=== PATIENT | male | born 1965 | race African-American/Black ===

== ENCOUNTER 2019-05-18 02:43 | Emergency (ER) | payer OTHER ==
[~2019-05-18] VITALS: Ht 185.4 cm; Wt 92.0 kg
[2019-05-18] MEDS ORDERED: HYDROCODONE/ACETAMINOPHEN 10/325MG TABLET PO ONE (03:30)
[2019-05-18] MEDS ORDERED: ONDANSETRON HCL 4MG/2ML INJ IV ONE (03:30)
[2019-05-18 04:03] LABS: BASOPHILS % 0.9 % (0.0-2.0); EOSINOPHILS % 2.4 % (0.0-5.0); HEMOGLOBIN. 14.9 g/dL (14.0-18.0); LYMPHOCYTES % 21.5 % (20.0-50.0); MEAN CORPUSCULAR HEMOGLOBIN 34.1 pg (28.0-32.0); MEAN CORPUSCULAR VOLUME 98.8 fL (80.0-94.0); MEAN PLATELET VOLUME 8.3 fl (7.4-10.4); MONOCYTES % 5.5 % (2.0-8.0); NEUTROPHILS % 69.7 % (40.0-76.0); PLATELET 227 x1000/uL (130-400); RED BLOOD CELL COUNT 4.36 mill/uL (4.7-6.1); RED CELL DISTRIBUTION WIDTH 14.2 % (11.6-14.6)
[2019-05-18 04:05] LABS: CHLORIDE 112 mEq/L (98-107)
[2019-05-18 04:09] LABS: ETHANOL BLOOD 111 mg/dL; PARTIAL THROMBOPLASTIN TIME 28.3 sec (23.4-31.0); PROTHROMBIN TIME 10.2 sec (9.6-11.0)
[2019-05-18 04:42] LABS: CLARITY URINE CLEAR (CLEAR); COLOR URINE YELLOW (YELLOW); KETONES URINE NEGATIVE (NEGATIVE); LEUKOCYTE ESTERASE URINE NEGATIVE (NEGATIVE); NITRITE URINE NEGATIVE (NEGATIVE); OCCULT BLOOD URINE NEGATIVE (NEGATIVE); PROTEIN URINE TRACE (NEGATIVE); SPECIFIC GRAVITY URINE 1.028 (1.005-1.030); UROBILINOGEN URINE 0.2 E.U./dL (0.2-1.0)
[2019-05-18 05:44] VITALS: BP 146/97
== END 2019-05-18 05:45 | disposition home or self-care (01) ==
LOC: ER 04:29
DX: R51 Headache (principal); F10.129 Alcohol abuse with intoxication, unspecified; Y90.0 Blood alcohol level of less than 20 mg/100 ml; V49.49XA Driver injured in collision with other motor vehicles in traffic accident, initial encounter; Y93.89 Activity, other specified; Y92.89 Other specified places as the place of occurrence of the external cause; Y99.8 Other external cause status; R74.8 Abnormal levels of other serum enzymes; Z85.9 Personal history of malignant neoplasm, unspecified
CPT/HCPCS: 36415; 70450; 71045; 80053; 80320; 81003; 82962; 83690; 85025; 85610; 85730; 86850; 86900; 86901; 96374; 99284; J2405; G0480

== ENCOUNTER 2021-02-12 01:13 | Emergency (ER) | payer OTHER ==
[~2021-02-12] VITALS: Ht 172.7 cm; Wt 90.0 kg
[2021-02-12] MEDS ORDERED: MORPHINE SULFATE 4 MG/ML CPJ (NOT FOR IM USE) IV STA (02:00)
[2021-02-12] MEDS ORDERED: SODIUM CHLORIDE 0.9% 1,000 ML IV ONE (02:00)
[2021-02-12] MEDS ORDERED: ONDANSETRON HCL 4MG/2ML INJ IV STA (02:00)
[2021-02-12] MEDS ORDERED: MORPHINE SULFATE 2 MG/ML CPJ (NOT FOR IM USE) IV SCH ×2 (02:15→03:45)
[2021-02-12 02:41] LABS: BASOPHILS % 0.8 % (0.0-2.0); EOSINOPHILS % 2.1 % (0.0-5.0); HEMATOCRIT. 42.5 % (42.0-52.0); HEMOGLOBIN. 14.6 g/dL (14.0-18.0); LYMPHOCYTES % 19.6 % (20.0-50.0); MEAN CORPUSCULAR HEMOGLOBIN 34.3 pg (28.0-32.0); MEAN CORPUSCULAR VOLUME 99.7 fL (80.0-94.0); MEAN PLATELET VOLUME 7.9 fl (7.4-10.4); MONOCYTES % 5.4 % (2.0-8.0); NEUTROPHILS % 72.1 % (40.0-76.0); PLATELET 226 x1000/uL (130-400); RED BLOOD CELL COUNT 4.27 mill/uL (4.7-6.1); RED CELL DISTRIBUTION WIDTH 13.7 % (11.6-14.6)
[2021-02-12 02:44] LABS: CHLORIDE 105 mEq/L (98-107)
[2021-02-12 02:48] LABS: ETHANOL BLOOD 75 mg/dL
[2021-02-12] MEDS ORDERED: MORPHINE SULFATE 4 MG/ML CPJ (NOT FOR IM USE) IV ONE (03:30)
[2021-02-12] MEDS ORDERED: IOHEXOL-300 100 ML BOTTLE ONE (04:11)
[2021-02-12 05:01] LABS: CLARITY URINE CLEAR (CLEAR); COLOR URINE YELLOW (YELLOW); KETONES URINE 1+ (NEGATIVE); LEUKOCYTE ESTERASE URINE NEGATIVE (NEGATIVE); NITRITE URINE NEGATIVE (NEGATIVE); OCCULT BLOOD URINE NEGATIVE (NEGATIVE); PH URINE 6.5 (4.5-8.0); PROTEIN URINE TRACE (NEGATIVE); SPECIFIC GRAVITY URINE 1.035 (1.005-1.030)
[2021-02-12 05:13] LABS: *BENZODIAZEPINES SCREEN URINE NEGATIVE (NEGATIVE)
[2021-02-12 05:14] LABS: *BARBITURATES SCREEN URINE NEGATIVE (NEGATIVE); *COCAINE SCREEN URINE PRESUMTIVE POSITIVE (NEGATIVE); CANNABINOID URINE SCREEN PRESUMTIVE POSITIVE (NEGATIVE); METHADONE URINE SCREEN NEGATIVE (NEGATIVE); OPIATES URINE SCREEN PRESUMTIVE POSITIVE (NEGATIVE); PHENCYCLIDINE URINE SCREEN NEGATIVE (NEGATIVE)
[2021-02-12 05:15] LABS: *AMPHETAMINES SCREEN URINE NEGATIVE (NEGATIVE)
[2021-02-12] MEDS ORDERED: HALOPERIDOL LACTATE 5MG/ML VIAL IM SCH (05:30)
[2021-02-12 05:50] VITALS: BP 146/89
== END 2021-02-12 06:22 | disposition home or self-care (01) ==
LOC: ER 01:13
DX: K20.90 Esophagitis, unspecified without bleeding (principal); K52.9 Noninfective gastroenteritis and colitis, unspecified; F14.10 Cocaine abuse, uncomplicated; F12.10 Cannabis abuse, uncomplicated
CPT/HCPCS: 36415; 74177; 80053; 80305; 80320; 81003; 83690; 85025; 96361; 96372; 96374; 96375; 96376; 99285; J1630; J2270; J2405; J7030; Q9967; G0480

== ENCOUNTER 2022-07-25 07:14 | Emergency (ER) | payer OTHER ==
[~2022-07-25] VITALS: Ht 180.3 cm; Wt 86.0 kg
[2022-07-25] MEDS ORDERED: KETOROLAC 30MG/ML VIAL IV STA (07:37)
[2022-07-25] MEDS ORDERED: ONDANSETRON HCL 4MG/2ML INJ IV STA (07:37)
[2022-07-25] MEDS ORDERED: SODIUM CHLORIDE 0.9% 1,000 ML IV ONE (07:45)
[2022-07-25 07:50] LABS: BASOPHILS % 0.4 % (0.0-2.0); HEMATOCRIT. 41.3 % (42.0-52.0); HEMOGLOBIN. 14.1 g/dL (14.0-18.0); LYMPHOCYTES % 16.5 % (20.0-50.0); MEAN CORPUSCULAR HEMOGLOBIN 34.2 pg (28.0-32.0); MEAN CORPUSCULAR VOLUME 100.4 fL (80.0-94.0); MEAN PLATELET VOLUME 8.3 fl (7.4-10.4); MONOCYTES % 5.5 % (2.0-8.0); NEUTROPHILS % 76.6 % (40.0-76.0); PLATELET 242 x1000/uL (130-400); RED BLOOD CELL COUNT 4.12 mill/uL (4.7-6.1); RED CELL DISTRIBUTION WIDTH 14.1 % (11.6-14.6)
[2022-07-25 08:00] LABS: PROTHROMBIN TIME 11.2 sec (9.6-11.0)
[2022-07-25 08:06] LABS: CHLORIDE 104 mEq/L (98-107)
[2022-07-25 08:14] LABS: ETHANOL BLOOD < 10 mg/dL
[2022-07-25] MEDS ORDERED: METOCLOPRAMIDE HCL 10MG/2ML VIAL IV ONE (09:00)
[2022-07-25] MEDS ORDERED: OMEP40CA20 MT (09:24)
[2022-07-25] MEDS ORDERED: ONDA4TAB50 MT (09:24)
[2022-07-25 11:10] VITALS: BP 125/78
== END 2022-07-25 15:06 | disposition home or self-care (01) ==
LOC: ER 07:14
DX: R10.9 Unspecified abdominal pain (principal); E11.9 Type 2 diabetes mellitus without complications; I25.2 Old myocardial infarction; I10 Essential (primary) hypertension; Z86.73 Personal history of transient ischemic attack (TIA), and cerebral infarction without residual deficits
CPT/HCPCS: 36415; 74176; 80053; 80320; 83690; 85025; 85610; 96361; 96374; 96375; 99285; J1885; J2405; J2765; J7030; Z7610; G0480

== ENCOUNTER 2024-08-21 18:29 | Inpatient (IN) | payer OTHER, MEDICARE ==
[~2024-08-21] VITALS: Ht 185.4 cm; Wt 90.4 kg
[~2024-08-21 18:29] MED LIST: OMEP40CA20 MT; ONDA4TAB50 MT
[2024-08-21 19:18] LABS: CHLORIDE 102 mEq/L (98-107); POTASSIUM 4.6 mEq/L (3.5-5.1); SODIUM 138 mEq/L (136-145)
[2024-08-21 19:19] LABS: CARBON DIOXIDE 27 mEq/L (21-32)
[2024-08-21 19:20] LABS: CALCIUM 9.1 mg/dL (8.7-10.4)
[2024-08-21 19:22] LABS: INR 1.1; PROTHROMBIN TIME 11.6 sec (9.6-11.0)
[2024-08-21 19:24] LABS: CREATININE 1.1 mg/dL (0.6-1.3); GLUCOSE 121 mg/dL (70-105)
[2024-08-21 19:25] LABS: ETHANOL BLOOD < 10 mg/dL (<10); UREA NITROGEN BLOOD 10 mg/dL (9-23)
[2024-08-21 19:29] LABS: BASOPHILS % 0.4 % (0.0-2.0); DIFFERENTIAL COMMENT 0; EOSINOPHILS % 2.2 % (0.0-5.0); HEMATOCRIT. 36.8 % (42.0-52.0); HEMOGLOBIN. 12.4 g/dL (14.0-18.0); MEAN CORPUSCULAR HEMOGLOBIN 34.2 pg (28.0-32.0); MEAN CORPUSCULAR HGB CONC 33.8 g/dL (31.0-37.0); MEAN CORPUSCULAR VOLUME 101.3 fL (80.0-94.0); MEAN PLATELET VOLUME 9.1 fl (7.4-10.4); MONOCYTES % 14.9 % (2.0-8.0); NEUTROPHILS % 64.5 % (40.0-76.0); PLATELET 222 x1000/uL (130-400); RED BLOOD CELL COUNT 3.63 mill/uL (4.7-6.1); RED CELL DISTRIBUTION WIDTH 13.9 % (11.6-14.6); WHITE BLOOD COUNT 6.6 x1000/uL (4.5-11.0)
[2024-08-21 19:40] LABS: TROPONIN I HIGH SENSITIVITY 322 ng/L (3.0-53)
[2024-08-21] MEDS: ONDANSETRON HCL 4MG/2ML INJ IV STA (20:01)
[2024-08-21] MEDS: MORPHINE SULFATE 4 MG/ML INJ (FOR IV/IM USE) IV STA (20:17)
[2024-08-21] MEDS: ENOXAPARIN 80MG/0.8ML SYR SUBCUT ONE (20:24)
[2024-08-21] MEDS: HYDROCODONE/ACETAMINOPHEN 5/325MG TABLET PO ONE (20:51)
[2024-08-21] MEDS: NITROGLYCERIN 0.4MG TABLET SL SL ONE (21:11)
[2024-08-22] VITALS (7 sets, daily range): BP systolic 95–115; BP diastolic 51–76; PULSE 60–90; RESP 18–20; TEMP 36.2–36.8; O2SAT 94–96
[2024-08-22] MEDS: HYDROCODONE/ACETAMINOPHEN 10/325MG TABLET PO PRN (02:01)
[2024-08-22] MEDS ORDERED: DEXTROSE 50% WATER 50ML SYRINGE IV PRN (05:00)
[2024-08-22] MEDS ORDERED: EMPA25TA PO ×2 (05:51→14:43)
[2024-08-22] MEDS ORDERED: DIVA-75 PO ×3 (05:51→14:44)
[2024-08-22] MEDS ORDERED: ASPI-1406 PO (05:51)
[2024-08-22] MEDS ORDERED: ATOR40TA70 PO (05:51)
[2024-08-22] MEDS ORDERED: HYDR2TAB7 PO ×2 (05:51→14:42)
[2024-08-22] MEDS ORDERED: AMLO5TAB88 PO (05:51)
[2024-08-22] MEDS ORDERED: CARV25TA47 PO (05:51)
[2024-08-22] MEDS ORDERED: ISOS30TA91 PO (05:51)
[2024-08-22] MEDS ORDERED: QUET200T30 PO (05:51)
[2024-08-22] MEDS ORDERED: SPIR25TA6 PO (05:51)
[2024-08-22] MEDS ORDERED: TRAZ-251 PO (05:51)
[2024-08-22] MEDS ORDERED: PANT40TA51 PO (05:51)
[2024-08-22] MEDS ORDERED: SILD100T69 PO ×2 (05:51→14:46)
[2024-08-22] MEDS ORDERED: APIX5TAB PO ×2 (05:51→14:43)
[2024-08-22 07:10] LABS: CLARITY URINE CLEAR (CLEAR); COLOR URINE DARK YELLOW (YELLOW); GLUCOSE URINE 3+ (NEGATIVE); KETONES URINE TRACE (NEGATIVE); LEUKOCYTE ESTERASE URINE TRACE (NEGATIVE); NITRITE URINE NEGATIVE (NEGATIVE); OCCULT BLOOD URINE NEGATIVE (NEGATIVE); PROTEIN URINE TRACE (NEGATIVE); SPECIFIC GRAVITY URINE 1.026 (1.005-1.030)
[2024-08-22] MEDS: INSULIN LISPRO 100 UNITS/ML SUBCUT SCH (07:15)
[2024-08-22] MEDS: BLOOD SUGAR DIAGNOSTIC STRIP TEST SCH (07:24)
[2024-08-22 07:33] LABS: *AMPHETAMINES SCREEN URINE NEGATIVE (NEGATIVE); *BARBITURATES SCREEN URINE NEGATIVE (NEGATIVE); *BENZODIAZEPINES SCREEN URINE NEGATIVE (NEGATIVE)
[2024-08-22 07:34] LABS: *COCAINE SCREEN URINE PRESUMPTIVE POSITIVE (NEGATIVE); CANNABINOID URINE SCREEN PRESUMPTIVE POSITIVE (NEGATIVE); ECSTASY MDMA SCREEN URINE CONF.TEST INDICATED (NEGATIVE); METHADONE URINE SCREEN NEGATIVE (NEGATIVE); OPIATES URINE SCREEN PRESUMPTIVE POSITIVE (NEGATIVE); PHENCYCLIDINE URINE SCREEN NEGATIVE (NEGATIVE)
[2024-08-22 08:04] LABS: RBC URINE NONE SEEN /hpf (0-2); WBC URINE 0-2 /hpf (0-2)
[2024-08-22 08:05] LABS: BACTERIA URINE TRACE; SQUAMOUS EPITHELIAL CELL URINE NONE SEEN /lpf (RARE/1+)
[2024-08-22] MEDS: ISOSORBIDE MONONITRATE 30MG TABLET SR 24HR PO SCH (09:00)
[2024-08-22] MEDS: METOPROLOL TARTRATE 50MG TABLET PO SCH (09:00)
[2024-08-22] MEDS: ASPIRIN 81MG TABLET PO SCH (09:04)
[2024-08-22] MEDS: ENOXAPARIN 40MG/0.4ML SYR SUBCUT SCH (09:06)
[2024-08-22] MEDS ORDERED: NALOXONE HCL 0.4MG/ML VIAL IV PRN (14:45)
[2024-08-22] MEDS: ACETAMINOPHEN 325MG TABLET PO PRN (17:47)
[2024-08-22] MEDS: NITROGLYCERIN 0.4MG TABLET SL SL PRN (20:09)
[2024-08-22] MEDS: ATORVASTATIN CALCIUM 40MG TABLET PO SCH (21:58)
[2024-08-22 22:32] LABS: TROPONIN I HIGH SENSITIVITY 192 ng/L (3.0-53)
[2024-08-22] MEDS: MORPHINE SULFATE 4 MG/ML INJ (FOR IV/IM USE) IV NR (23:09)
[2024-08-23] VITALS (7 sets, daily range): BP systolic 91–105; BP diastolic 58–80; PULSE 78–90; RESP 14–20; TEMP 36.2–36.8; O2SAT 97–100
[2024-08-24] VITALS: BP 116/81; PULSE 80; RESP 17; TEMP 35.8; O2SAT 98
[2024-08-24 04:00] VITALS: BP 97/58; PULSE 92; RESP 18; TEMP 37.1; O2SAT 96
[2024-08-24 08:00] VITALS: BP 106/71; PULSE 80; RESP 18; TEMP 36.3; O2SAT 98
[2024-08-24 12:00] VITALS: BP 90/53; PULSE 82; RESP 18; TEMP 36.4; O2SAT 96
[2024-08-24 16:00] VITALS: BP 105/77; PULSE 84; RESP 18; TEMP 36.6; O2SAT 96
[2024-08-24 20:00] VITALS: BP 119/86; PULSE 92; RESP 18; TEMP 36.4; O2SAT 100
[2024-08-25] VITALS (8 sets, daily range): BP systolic 85–119; BP diastolic 57–85; PULSE 76–91; RESP 17–18; TEMP 35.6–36.7; O2SAT 96–99
[2024-08-25] MEDS: MORPHINE SULFATE 2 MG/ML INJ (NOT FOR IM USE) IV PRN (02:20)
[2024-08-25] MEDS ORDERED: ONDANSETRON HCL 4MG/2ML INJ IV PRN (02:45)
[2024-08-25] MEDS: MORPHINE SULFATE 4 MG/ML INJ (FOR IV/IM USE) IV PRN (09:00)
[2024-08-25] MEDS: MIDODRINE HCL 5MG TABLET PO NR (12:20)
== END 2024-08-25 20:09 | disposition home or self-care (01) | DRG 280 ==
LOC: ER 18:29 → EDBEDREQSVC 22:05 → 5WST 22:36
PROVIDERS: ADMIT Internal Medicine; ATTEND Internal Medicine
DX: I11.0 Hypertensive heart disease with heart failure (principal); I50.31 Acute diastolic (congestive) heart failure; I21.A1 Myocardial infarction type 2; F14.90 Cocaine use, unspecified, uncomplicated; E11.9 Type 2 diabetes mellitus without complications; F17.210 Nicotine dependence, cigarettes, uncomplicated; I25.10 Atherosclerotic heart disease of native coronary artery without angina pectoris; Z95.5 Presence of coronary angioplasty implant and graft; Z86.73 Personal history of transient ischemic attack (TIA), and cerebral infarction without residual deficits; I25.2 Old myocardial infarction
CPT/HCPCS: 36415; 71045; 80048; 80305; 80320; 81003; 82962; 83036; 83880; 84484; 85025; 93005; 93306; 99291; A4606; J1650; J1815; J2270; J2405; G0480

== ENCOUNTER 2025-04-15 14:12 | Emergency (ER) | payer OTHER, MEDICARE ==
[~2025-04-15] VITALS: Ht 182.9 cm; Wt 90.0 kg
[~2025-04-15 14:12] MED LIST changes: +AMLO5TAB88 PO; +APIX5TAB PO; +ASPI-1406 PO; +ATOR40TA70 PO; +CARV25TA47 PO; +DIVA-131 PO; +EMPA25TA PO; +ISOS30TA91 PO; -OMEP40CA20 MT; -ONDA4TAB50 MT; +PANT40TA51 PO; +QUET200T30 PO; +SPIR25TA6 PO; +TRAZ-251 PO
[2025-04-15 14:14] VITALS: TEMP 97.9; O2SAT 97
[2025-04-15] MEDS: ASPIRIN 325MG TABLET PO ONE (14:51)
[2025-04-15] MEDS: NITROGLYCERIN 0.4MG TABLET SL SL PRN (14:51)
[2025-04-15 14:58] LABS: BASOPHILS % 0.8 % (0.0-2.0); EOSINOPHILS % 0.5 % (0.0-5.0); HEMATOCRIT. 41.8 % (42.0-52.0); HEMOGLOBIN. 14.0 g/dL (14.0-18.0); LYMPHOCYTES % 17.1 % (20.0-50.0); MEAN PLATELET VOLUME 9.0 fl (7.4-10.4); MONOCYTES % 8.5 % (2.0-8.0); NEUTROPHILS % 73.1 % (40.0-76.0); PLATELET 123 x1000/uL (130-400); RED BLOOD CELL COUNT 4.05 mill/uL (4.7-6.1); RED CELL DISTRIBUTION WIDTH 14.0 % (11.6-14.6)
[2025-04-15 15:10] LABS: CREATININE 1.0 mg/dL (0.6-1.3); UREA NITROGEN BLOOD 9 mg/dL (9-23)
[2025-04-15 15:11] LABS: PROTEIN TOTAL 6.2 g/dL (6.0-8.3)
[2025-04-15 15:12] LABS: ASPARTATE AMINOTRANSFERASE 16 IU/L (<34)
[2025-04-15 15:13] LABS: BILIRUBIN DIRECT 0.1 mg/dL (<=3.0); BILIRUBIN TOTAL 0.5 mg/dL (0.1-1.0)
[2025-04-15 15:17] LABS: INR 1.0
[2025-04-15 16:02] LABS: TROPONIN I HIGH SENSITIVITY 12 ng/L (3.0-53)
[2025-04-15 16:46] LABS: TROPONIN I HIGH SENSITIVITY 16 ng/L (3.0-53)
[2025-04-15] MEDS: MORPHINE SULFATE 4 MG/ML INJ (FOR IV/IM USE) IV ONE (17:32)
[2025-04-15 17:52] LABS: TROPONIN I HIGH SENSITIVITY 21 ng/L (3.0-53)
[2025-04-15 20:10] VITALS: BP 135/91; PULSE 76; RESP 15; O2SAT 99
== END 2025-04-15 20:36 | disposition admitted as inpatient to this hospital (09) ==
LOC: ER 14:12 → CANBEDREQ 17:45 → ER 20:36
DX: R07.89 Other chest pain (principal); I25.10 Atherosclerotic heart disease of native coronary artery without angina pectoris; I10 Essential (primary) hypertension; E11.9 Type 2 diabetes mellitus without complications; R07.9 Chest pain, unspecified; R06.02 Shortness of breath; A41.9 Sepsis, unspecified organism; Z79.01 Long term (current) use of anticoagulants; Z79.82 Long term (current) use of aspirin; Z79.84 Long term (current) use of oral hypoglycemic drugs; Z79.899 Other long term (current) drug therapy; Z86.73 Personal history of transient ischemic attack (TIA), and cerebral infarction without residual deficits; Z88.8 Allergy status to other drugs, medicaments and biological substances
CPT/HCPCS: 80076; 80048; 83880; 83735; 85025; 85610; 85730; 84484; 36415; 71045; 93005; 96374; 99285; J2270; Z7610 ×2; A4606